=== PATIENT | female | born 1960 | race Caucasian/White ===

== ENCOUNTER 2018-09-26 18:19 | Emergency (ER) | payer MEDICAID ==
[~2018-09-26] VITALS: Ht 175.3 cm; Wt 93.4 kg
[2018-09-26] MEDS ORDERED: TETRACAINE HCL 0.5% OPTH(EYE) SOLN 4ML EACHEYE ONE (19:15)
[2018-09-26] MEDS ORDERED: TIMOLOL MAL 0.5% OPTH(EYE) SOL 5ML LEFTEYE ONE (19:45)
[2018-09-26] MEDS ORDERED: acetaZOLAMIDE SODIUM 500 MG VL IV ONE (19:45)
[2018-09-26] MEDS ORDERED: TETRACAINE HCL 0.5% OPTH(EYE) SOLN 4ML ONE (20:21)
[2018-09-26 22:32] VITALS: BP 134/91
== END 2018-09-27 00:09 | disposition home or self-care (01) ==
LOC: ER 18:20
DX: E05.00 Thyrotoxicosis with diffuse goiter without thyrotoxic crisis or storm (principal); E07.9 Disorder of thyroid, unspecified; E78.5 Hyperlipidemia, unspecified
CPT/HCPCS: 84443; 96374; 99283; J1120